=== PATIENT | female | born 1955 | race Asian ===

== ENCOUNTER 2019-02-28 08:39 | Outpatient (CLI) | payer OTHER | END 2019-02-28 23:28 | disposition home or self-care (01) | LOC: RAD 08:39 | DX: Z01.818 Encounter for other preprocedural examination (principal) ==

== ENCOUNTER → 2022-12-23 | Outpatient (CLI) | payer OTHER | LOC: MAMMO 10:00 | PROVIDERS: ATTEND Nurse Practitioner Family | DX: Z12.31 Encounter for screening mammogram for malignant neoplasm of breast (principal) ==

== ENCOUNTER 2023-01-20 09:11 | Outpatient (CLI) | payer OTHER | END 2023-01-20 17:00 | disposition home or self-care (01) | LOC: US 09:11 | PROVIDERS: ATTEND Nurse Practitioner Family | DX: R92.8 Other abnormal and inconclusive findings on diagnostic imaging of breast (principal) ==

== ENCOUNTER 2023-07-05 08:33 | Outpatient (CLI) | payer OTHER ==
[2023-07-05 09:09] LABS: PLATELET COUNT 312 K/uL (152-353)
== END 2023-07-05 18:51 | disposition home or self-care (01) ==
LOC: LABW 08:33
PROVIDERS: ATTEND Student in an Organized Health Care Education/Training Program
DX: N28.89 Other specified disorders of kidney and ureter (principal); D63.1 Anemia in chronic kidney disease; E79.0 Hyperuricemia without signs of inflammatory arthritis and tophaceous disease; R80.8 Other proteinuria; N25.81 Secondary hyperparathyroidism of renal origin; D50.8 Other iron deficiency anemias; N18.30 Chronic kidney disease, stage 3 unspecified; B18.2 Chronic viral hepatitis C; E11.65 Type 2 diabetes mellitus with hyperglycemia; E55.9 Vitamin D deficiency, unspecified; E78.2 Mixed hyperlipidemia; Z79.899 Other long term (current) drug therapy; I12.9 Hypertensive chronic kidney disease with stage 1 through stage 4 chronic kidney disease, or unspecified chronic kidney disease
CPT/HCPCS: 36415; 80053; 80074; 81002; 82306; 82550; 82570; 83036; 83735; 83970; 84100; 84156; 84165; 84550; 85027; 86037; 86160; 86592; 86701; 86702; 87389

== ENCOUNTER 2023-07-07 10:33 | Outpatient (CLI) | payer OTHER | END 2023-07-07 19:57 | disposition home or self-care (01) | LOC: US 10:33 | PROVIDERS: ATTEND Student in an Organized Health Care Education/Training Program | DX: N28.89 Other specified disorders of kidney and ureter (principal); D63.1 Anemia in chronic kidney disease; R73.03 Prediabetes; E79.0 Hyperuricemia without signs of inflammatory arthritis and tophaceous disease; R80.8 Other proteinuria; N25.81 Secondary hyperparathyroidism of renal origin; N18.9 Chronic kidney disease, unspecified; I12.9 Hypertensive chronic kidney disease with stage 1 through stage 4 chronic kidney disease, or unspecified chronic kidney disease ==